=== PATIENT | female | born 1985 ===

== ENCOUNTER 2018-04-10 17:58 | Inpatient (IN) | payer OTHER ==
[~2018-04-10] VITALS: Ht 170.2 cm; Wt 1.8 kg
[2018-04-18] MEDS ORDERED: CODE1TAB37 PO (08:15)
[2018-04-18] MEDS ORDERED: NAPROXEN500 MG PO (08:16)
[2018-04-18] MEDS ORDERED: ALDOMET250 MG PO (08:19)
== END 2018-04-18 10:17 | disposition home or self-care (01) | DRG 786 ==
LOC: LDR 17:58 → OB/GYN 17:58
PROVIDERS: Obstetrics & Gynecology
PROC: 4A1HXCZ Monitoring of Products of Conception, Cardiac Rate, External Approach (ICD-10-PCS; 2018-04-15)
PROC: 3E033VJ Introduction of Other Hormone into Peripheral Vein, Percutaneous Approach (ICD-10-PCS; 2018-04-15)
PROC: 4A033R1 Measurement of Arterial Saturation, Peripheral, Percutaneous Approach (ICD-10-PCS; 2018-04-15)
PROC: 10D00Z1 Extraction of Products of Conception, Low, Open Approach (ICD-10-PCS; principal; 2018-04-15 09:15)
DX: O61.0 Failed medical induction of labor (principal); O60.14X2 Preterm labor third trimester with preterm delivery third trimester, fetus 2; O14.13 Severe pre-eclampsia, third trimester; O30.043 Twin pregnancy, dichorionic/diamniotic, third trimester; O13.4 Gestational [pregnancy-induced] hypertension without significant proteinuria, complicating childbirth; Z3A.31 31 weeks gestation of pregnancy; Z37.2 Twins, both liveborn